=== PATIENT | male | born 2000 | race Caucasian/White ===

== ENCOUNTER 2020-03-27 09:55 | Emergency (ER) | payer OTHER ==
[2020-03-27] MEDS ORDERED: Bacitracin Oint 1 GM U/D Packet TOP ONE (10:08)
[2020-03-27] MEDS ORDERED: Lidocaine 1% 30 ML SDV INJECT ONE (10:08)
--- NOTE | 2020-03-27 10:44 | CR ---
PROCEDURE INFORMATION: Exam: XR Left Finger(s) Exam date and time: 03/27/2020 10:09 AM Age: 19 years old Clinical indication: Other: Crush injury TECHNIQUE: Imaging protocol: XR Left fingers. Views: Minimum 2 views. COMPARISON: No relevant prior studies available. FINDINGS: Bones/joints: Comminuted fractures of the most distal portion of the left finger and with fragment by no more than about 1 mm. All other bones are intact. Soft tissues: 3rd digit soft tissue swelling. No radiodense soft tissue foreign body or hematoma. IMPRESSION: Acute comminuted minimally displaced fracture of the left 3rd finger distal tuft.
[2020-03-27] MEDS ORDERED: Acetaminophen/HYDROcodone 325-5 MG Tab PO ONE (10:59)
--- NOTE | 2020-03-27 11:28 | EDM.PDOC ---
ED HPI GENERAL MEDICAL PROBLEM - General Chief Complaint: Laceration Stated Complaint: HAND GOT CAUGHT IN WENCH Time Seen by Provider: 03/27/20 10:15 Source of Information: Reports: Patient, RN, RN Notes Reviewed History Limitations: Reports: No Limitations - History of Present Illness INITIAL COMMENTS - FREE TEXT/NARRATIVE: Pt presents to ER with c/o smashing his finger in a wood splitter. Patient states he crushed the finger. Finger still in the glove as he had not yet removed his glove. Laceration, petichiae to the left middle finger. Nail bed bruising to the left middle finger. Patient states he last got updated for Tetanus 4 years ago. Patient states he is allergic to the Clavunate in the Augmentin, but is not allergic to penicillins. Onset: Today, Sudden Left Finger-Middle Pain Score (Numeric/FACES): 6 - Related Data Allergies Allergy/AdvReac Type Severity Reaction Status Date / Time amoxicillin Allergy Hives Verified 03/27/20 10:15 Home Meds: Home Meds . [No Known Home Meds] 03/27/20 [History] Past Medical History HEENT History: Reports: None Cardiovascular History: Reports: None Respiratory History: Reports: None Gastrointestinal History: Reports: None Genitourinary History: Reports: None Musculoskeletal History: Reports: None Neurological History: Reports: None Psychiatric History: Reports: None Endocrine/Metabolic History: Reports: None Hematologic History: Reports: None Immunologic History: Reports: None Oncologic (Cancer) History: Reports: None Dermatologic History: Reports: None - Infectious Disease History Infectious Disease History: Reports: Chicken Pox - Past Surgical History Head Surgeries/Procedures: Reports: None GI Surgical History: Reports: Appendectomy Social & Family History - Tobacco Use Smoking Status *Q: Current Every Day Smoker Years of Tobacco use: 3 Packs/Tins Daily: 0.5 Second Hand Smoke Exposure: No - Caffeine Use Caffeine Use: Reports: Soda - Recreational Drug Use Recreational Drug Use: Yes Recreational Drug Type: Reports: Marijuana/Hashish Other Recreational Drug Type: mauijuana daily ED ROS GENERAL - Review of Systems Review Of Systems: Comprehensive ROS is negative, except as noted in HPI. ED EXAM, SKIN/RASH Exam: See Below Exam Limited By: No Limitations General Appearance: Alert, WD/WN, Moderate Distress Eye Exam: Bilateral Eye: EOMI, Normal Inspection Ears: Normal External Exam Nose: Nasal Deformity Throat/Mouth: Normal Inspection, Normal Voice, No Airway Compromise Head: Atraumatic, Normocephalic Neck: Normal Inspection, Supple, Non-Tender, Full Range of Motion Respiratory/Chest: No Respiratory Distress, Lungs Clear, Normal Breath Sounds, No Accessory Muscle Use, Chest Non-Tender Cardiovascular: Normal Peripheral Pulses, Regular Rate, Rhythm, No Edema, No Gallop, No JVD, No Murmur, No Rub Peripheral Pulses: 2+: Radial (L), Radial (R) GI/Abdominal: Normal Bowel Sounds, Soft, Non-Tender (Male) Exam: Deferred Rectal (Males) Exam: Deferred Back Exam: Normal Inspection, Full Range of Motion, NT Extremities: Limited Range of Motion (middle left finger), Other (laceration, swelling, petechiae of the left middle finger, nail bed bruising) Neurological: Alert, Oriented, CN II-XII Intact, Normal Cognition, Normal Gait, Normal Reflexes, No Motor/Sensory Deficits Psychiatric: Anxious, Tearful Skin: Warm, Dry, Other (left middle finger laceration 3cm to ventral aspect) Location, Skin: Upper Extremity, Left Lymphatic: No Adenopathy ED SKIN PROCEDURES - Laceration/Wound Repair Left Ventral Digit - 3rd (Middle) Appearance: Subcutaneous Distal NVT: Neuro & Vascular Intact Anesthetic Type: Local Local Anesthesia - Lidocaine (Xylocaine): 1% Plain Local Anesthetic Volume: 3cc Skin Prep: Chlorhexidine (Hibiciens) Exploration/Debridement/Repair: Wound Explored, In a Bloodless Field, Explored to Base, Minimal Debridement, No Foreign Material Found Closed with: Sutures Lac/Wound length In cm: 3 Suture Size: 4-0 # of Sutures: 7 Suture Type: Nylon, Interrupted Drain Placement: No Sterile Dressing Applied: Provider Tetanus Status Addressed: Yes Complications: No Course - Vital Signs Last Recorded V/S: Last Vital Signs Temp 98 F 03/27/20 10:07 Pulse 87 03/27/20 10:07 Resp 16 03/27/20 10:07 BP 157/82 H 03/27/20 10:07 Pulse Ox 99 03/27/20 10:07 - Orders/Labs/Meds Meds: Medications Discontinued Medications Generic Name Dose Route Start Last Admin Trade Name Freq PRN Reason Stop Dose Admin Hydrocodone Bitart/Acetaminophen 1 tab 03/27/20 10:59 03/27/20 11:05 [place] 325-5 Mg PO 03/27/20 11:00 1 tab ONETIME ONE Administration Bacitracin 1 dose 03/27/20 10:08 03/27/20 10:21 Bacitracin Oint 1 Gm TOP 03/27/20 10:09 1 dose ONETIME ONE Administration Lidocaine HCl 30 ml 03/27/20 10:08 03/27/20 10:21 Xylocaine-Mpf 1% INJECT 03/27/20 10:09 30 ml ONETIME ONE Administration - Radiology Interpretation Free Text/Narrative:: LPROCEDURE INFORMATION: Exam: XR Left Finger(s) Exam date and time: 03/27/2020 10:09 AM Age: 19 years old Clinical indication: Other: Crush injury TECHNIQUE: Imaging protocol: XR Left fingers. Views: Minimum 2 views. COMPARISON: No relevant prior studies available. FINDINGS: Bones/joints: Comminuted fractures of the most distal portion of the left finger and with fragment by no more than about 1 mm. All other bones are intact. Soft tissues: 3rd digit soft tissue swelling. No radiodense soft tissue foreign body or hematoma. IMPRESSION: Acute comminuted minimally displaced fracture of the left 3rd finger distal tuft. Thank you for allowing us to participate in the care of your patient. Dictated and Authenticated by: Elie Barbosa MD 03/27/2020 10:44 AM Central Time ([place] & [place]) - Re-Assessments/Exams Free Text/Narrative Re-Assessment/Exam: 03/27/20 17:56 Discussed patient case with Dr. Ricks who states he would like to see the gus shell on Tuesday03/31/2020. Patient notified and states he will call and make an appointment. Facesheet faxed to [facility]. Departure - Departure Time of Disposition: 11:33 Disposition: Home, Self-Care 01 Condition: Fair Clinical Impression: Closed fracture of tuft of distal phalanx of finger, Laceration - Discharge Information *PRESCRIPTION DRUG MONITORING PROGRAM REVIEWED*: No *COPY OF PRESCRIPTION DRUG MONITORING REPORT IN PATIENT [place]: No Instructions: Finger Fracture, Adult, [id number], Cast or Splint Care, Adult, [id number], Sutures, Boubacar, or Adhesive Wound Closure, [id number], Nail Bed Injury, [id number] Referrals: PCP,None [Primary Care Provider] - Forms: ED Department Discharge Additional Instructions: Rx: Cephalexin May use Tylenol and/or ibuprofen as directed for pain Follow up with your primary care provider in 7-10 days for suture removal Keep area clean and dry, splint Sepsis Event Note (ED) - Evaluation Sepsis Screening Result: No Definite Risk - Focused Exam Vital Signs: Vital Signs Temp Pulse Resp BP Pulse Ox 03/27/20 10:07 98 F 87 16 157/82 H 99
== END 2020-03-27 11:32 | disposition home or self-care (01) ==
LOC: DL.ED 09:55
DX: S62.633A Displaced fracture of distal phalanx of left middle finger, initial encounter for closed fracture (principal); S61.313A Laceration without foreign body of left middle finger with damage to nail, initial encounter; F17.210 Nicotine dependence, cigarettes, uncomplicated; Z90.49 Acquired absence of other specified parts of digestive tract; Z88.1 Allergy status to other antibiotic agents; W31.2XXA Contact with powered woodworking and forming machines, initial encounter
CPT/HCPCS: 12002; 73140; 99283; A9270; J2001; 99284